=== PATIENT | male | born 1980 | race Caucasian/White ===

== ENCOUNTER 2017-03-08 19:59 | Emergency (ER) | payer MEDICAID ==
[~2017-03-08] VITALS: Ht 175.3 cm; Wt 97.5 kg
[2017-03-08 20:23] VITALS: BP 146/102
--- NOTE | 2017-03-08 21:29 | NUR ---
Patient to bed 04.
[2017-03-08 21:35] VITALS: BP 146/102
--- NOTE | 2017-03-08 21:35 | NUR ---
PATIENT PRESENTS TO ED WITH C/O PAIN TO LEFT FOOT. PT DENIES N/V/D; SKIN IS PINK/WARM/DRY; AAOX4 WITH EVEN AND STEADY GAIT; LUNGS CLEAR BL; HR EVEN AND REGULAR; PT DENIES ANY FEVER, CP, SOB, OR COUGH AT THIS TIME; PATIENT STATES PAIN OF 8/10 AT THIS TIME; VSS; PATIENT POSITIONED FOR COMFORT; HOB ELEVATED; BEDRAILS UP X2; BED DOWN. ER MD MADE AWARE OF PT STATUS.
[2017-03-08] MEDS ORDERED: IBUPROFEN 600 MG TAB ONE (21:55)
[2017-03-08] MEDS ORDERED: IBUPROFEN 600 MG TAB PO ONE (22:25)
== END 2017-03-08 22:44 | disposition home or self-care (01) ==
LOC: MED 19:59
DX: S92.515A Nondisplaced fracture of proximal phalanx of left lesser toe(s), initial encounter for closed fracture (principal); W20.8XXA Other cause of strike by thrown, projected or falling object, initial encounter; Y93.89 Activity, other specified; Y92.89 Other specified places as the place of occurrence of the external cause; Y99.8 Other external cause status
CPT/HCPCS: 73630; 99284

== ENCOUNTER 2017-04-15 18:23 | Emergency (ER) | payer MEDICAID ==
[~2017-04-15] VITALS: Ht 175.3 cm; Wt 98.7 kg
[2017-04-15 18:58] VITALS: BP 146/82
--- NOTE | 2017-04-15 19:55 | NUR ---
BLOOD DRAWN BY THE SHIP MATE. STILL IN LOBBY IN STABLE CONDITION. DONTRELL NOTED.
[2017-04-15 20:07] LABS: BASOPHILS # (AUTO) 0.4 K/uL (0.00-0.22); BASOPHILS % (AUTO) 4.7 % (0.0-2.0); EOSINOPHILS # (AUTO) 0.1 K/uL (0-0.4); HEMATOCRIT 45.5 % (36-52); HEMOGLOBIN 15.3 g/dL (12.0-18.0); LYMPHOCYTES # (AUTO) 0.9 K/uL (2.0-11.5); LYMPHOCYTES % (AUTO) 11.9 % (20.5-51.1); MEAN CORPUSCULAR HEMOGLOBIN 28 pg (27-31); MEAN CORPUSCULAR HGB CONC 34 g/dL (33-37); MEAN CORPUSCULAR VOLUME 83 fL (80-94); MONOCYTES # (AUTO) 0.3 K/uL (0.8-1.0); MONOCYTES % (AUTO) 3.3 % (1.7-9.3); NEUTROPHILS % (AUTO) 79.1 % (42.2-75.2); PLATELET COUNT (AUTO) 250 K/uL (140-450); RED BLOOD CELL COUNT(AUTO) 5.49 MIL/uL (4.20-6.10); RED CELL DISTRIBUTION WIDTH 12.7 % (11.6-13.7); WHITE BLOOD COUNT (AUTO) 7.7 K/uL (4.8-10.8)
[2017-04-15 20:17] LABS: CARBON DIOXIDE 30.5 mmol/L (21-32); CREATININE 1.2 mg/dL (0.7-1.3); POTASSIUM 3.5 mmol/L (3.5-5.1)
[2017-04-15 20:23] LABS: ALBUMIN 4.2 g/dL (3.4-5.0); TOTAL BILIRUBIN 0.8 mg/dL (0.0-1.0)
--- NOTE | 2017-04-15 21:05 | NUR ---
36M BIB SELF C/O INTERMITTENT FEVER, VOMITING AND DIARRHEA X TODAY. PT DENIES ANY SOB, CP AT THE MOMENT. PT AAOX4. BREATHING IS UNLABORED AND CLEAR. ER MD MADE AWARE. HX: PT DENIES RX: PT DENIES
[2017-04-15 21:21] VITALS: BP 132/79
--- NOTE | 2017-04-15 21:21 | NUR ---
Patient discharged with v/s stable. Written and verbal after care instructions given and explained. Patient alert, oriented and verbalized understanding of instructions. Ambulatory with steady gait. All questions addressed prior to discharge. ID band removed. Patient advised to follow up with PMD. Rx of ZOFRAN 8MG, MOTRIN 800MG, AND IMODIUM 800MG given. Patient educated on indication of medication including possible reaction and side effects. Opportunity to ask questions provided and answered.
== END 2017-04-15 21:21 | disposition home or self-care (01) ==
LOC: MED 18:23
DX: R11.2 Nausea with vomiting, unspecified (principal); R19.7 Diarrhea, unspecified; R50.9 Fever, unspecified
CPT/HCPCS: 36415; 80053; 83690; 85025; 99284

== ENCOUNTER 2017-05-20 17:57 | Emergency (ER) | payer MEDICAID, OTHER ==
[~2017-05-20] VITALS: Ht 175.3 cm; Wt 100.2 kg
[2017-05-20 18:06] VITALS: BP 152/94
--- NOTE | 2017-05-20 18:45 | NUR ---
PT TAKEN TO BED 3.
[2017-05-20 19:15] VITALS: BP 152/94
--- NOTE | 2017-05-20 19:15 | NUR ---
REPORT REPORT RECEIVED FROM KRISSY GREENE
--- NOTE | 2017-05-20 19:17 | NUR ---
PATIENT PRESENTS TO ED WITH C/O ABD PAIN RADIATING TO EPIGASTRIC AREA . FEELS NAUSEOUS BUT DENIES V/D; SKIN IS PINK/WARM/DRY; AAOX4 WITH EVEN AND STEADY GAIT; LUNGS CLEAR BL; HR EVEN AND REGULAR; PT DENIES ANY FEVER, CP, SOB, OR COUGH AT THIS TIME; PATIENT STATES PAIN OF 6/10 AT THIS TIME; PATIENT POSITIONED FOR COMFORT; HOB ELEVATED; BEDRAILS UP X2; BED DOWN. ER MD MADE AWARE OF PT STATUS.
--- NOTE | 2017-05-20 19:27 | NUR ---
Pt report given to pipo Lujan. Transfer of care at this time.
[2017-05-20] MEDS ORDERED: DICYCLOMINE HCL LIQUID 20 MG, ALUMINUM HYD/MAG/SIMETHICONE 30 ML, LIDOCAINE VISCOUS 2% ... PO ONE ×3 (19:30)
[2017-05-20 19:52] LABS: APPEARANCE,URINE CLEAR (CLEAR); BILIRUBIN,URINE NEGATIVE (NEGATIVE); BLOOD, URINE 1+ (NEGATIVE); COLOR,URINE YELLOW (YELLOW); LEUKOCYTE ESTERASE ,URINE NEGATIVE (NEGATIVE); NITRITE, URINE NEGATIVE (NEGATIVE); PH,URINE 6.5 (5.0-9.0); UGLUCOSE NEGATIVE (NEGATIVE)
[2017-05-20 19:53] LABS: RBC,URINE 3-10 (FEW) /HPF (0-5); WBC,URINE 0-5 (RARE) /HPF (0-5)
[2017-05-20 19:58] LABS: BASOPHILS # (AUTO) 0.3 K/uL (0.00-0.22); BASOPHILS % (AUTO) 4.4 % (0.0-2.0); EOSINOPHILS # (AUTO) 0.2 K/uL (0-0.4); EOSINOPHILS % (AUTO) 3.4 % (0.0-4.0); HEMATOCRIT 42.4 % (36-52); HEMOGLOBIN 14.4 g/dL (12.0-18.0); LYMPHOCYTES # (AUTO) 2.6 K/uL (2.0-11.5); LYMPHOCYTES % (AUTO) 36.9 % (20.5-51.1); MEAN CORPUSCULAR HEMOGLOBIN 29 pg (27-31); MEAN CORPUSCULAR HGB CONC 34 g/dL (33-37); MEAN CORPUSCULAR VOLUME 84 fL (80-94); MONOCYTES # (AUTO) 0.7 K/uL (0.8-1.0); MONOCYTES % (AUTO) 9.6 % (1.7-9.3); NEUTROPHILS # (AUTO) 3.2 K/uL (1.8-7.7); NEUTROPHILS % (AUTO) 45.7 % (42.2-75.2); PLATELET COUNT (AUTO) 262 K/uL (140-450); RED BLOOD CELL COUNT(AUTO) 5.05 MIL/uL (4.20-6.10); RED CELL DISTRIBUTION WIDTH 12.9 % (11.6-13.7)
[2017-05-20 20:03] LABS: ANION GAP 9.8 (8-16); CREATININE 1.1 mg/dL (0.7-1.3); POTASSIUM 3.8 mmol/L (3.5-5.1)
[2017-05-20 20:09] LABS: ALBUMIN 4.1 g/dL (3.4-5.0); TOTAL BILIRUBIN 0.4 mg/dL (0.0-1.0)
--- NOTE | 2017-05-20 21:35 | NUR ---
Patient discharged with v/s stable. Written and verbal after care instructions given and explained. Patient verbalized understanding. Ambulatory with steady gait. All questions addressed prior to discharge. Advised to follow up with PMD.
== END 2017-05-20 21:36 | disposition home or self-care (01) ==
LOC: MED 17:57
DX: R10.13 Epigastric pain (principal); R03.0 Elevated blood-pressure reading, without diagnosis of hypertension
CPT/HCPCS: 36415; 80053; 81001; 83690; 85025; 99284

== ENCOUNTER 2017-08-25 18:35 | Emergency (ER) | payer OTHER ==
[~2017-08-25] VITALS: Ht 175.3 cm; Wt 98.9 kg
[2017-08-25 18:39] VITALS: BP 142/98
--- NOTE | 2017-08-25 18:44 | NUR ---
PT GIVEN URINE CUP
--- NOTE | 2017-08-25 18:44 | NUR ---
PT TO LOBBY
--- NOTE | 2017-08-25 19:21 | NUR ---
PATIENT TO ER BED 6
--- NOTE | 2017-08-25 19:25 | NUR ---
37 Y/O M W/C/O PAIN ALL OVER R/T WELST THAT APPEAR X 6 DAYS AGO . PT DENIES ANY NEW FEVER, NEW FOOD, OR DETERGENT. NO S/S OF DISTRESS NOTED. MD CALI MADE AWARE.
--- NOTE | 2017-08-25 19:44 | NUR ---
Dr. Martinez evaluating patient.
[2017-08-25] MEDS ORDERED: NACL 0.9% 1,000 ML IV ONE (19:55)
[2017-08-25] MEDS ORDERED: KETOROLAC 30 MG/ML VIAL IVP ONE (19:55)
[2017-08-25 20:19] LABS: BASOPHILS % (AUTO) 0.6 % (0.0-2.0); EOSINOPHILS # (AUTO) 0.3 K/uL (0-0.4); EOSINOPHILS % (AUTO) 4.1 % (0.0-4.0); HEMATOCRIT 42.6 % (36-52); HEMOGLOBIN 14.6 g/dL (12.0-18.0); LYMPHOCYTES # (AUTO) 1.9 K/uL (2.0-11.5); MEAN CORPUSCULAR HEMOGLOBIN 29 pg (27-31); MEAN CORPUSCULAR HGB CONC 34 g/dL (33-37); MEAN CORPUSCULAR VOLUME 83.2 fL (80-94); MONOCYTES # (AUTO) 0.9 K/uL (0.8-1.0); MONOCYTES % (AUTO) 12.3 % (1.7-9.3); NEUTROPHILS # (AUTO) 4.4 K/uL (1.8-7.7); PLATELET COUNT (AUTO) 262 K/uL (140-450); RED BLOOD CELL COUNT(AUTO) 5.12 MIL/uL (4.20-6.10); RED CELL DISTRIBUTION WIDTH 13.4 % (11.6-13.7); WHITE BLOOD COUNT (AUTO) 7.7 K/uL (4.8-10.8)
[2017-08-25 20:28] LABS: ANION GAP 10.5 (8-16); CREATININE 1.1 mg/dL (0.7-1.3); POTASSIUM 4.5 mmol/L (3.5-5.1)
[2017-08-25 20:33] LABS: ALBUMIN 4.2 g/dL (3.4-5.0); CHOL/HDL RATIO 5.9 (1-4.5); TOTAL BILIRUBIN 0.6 mg/dL (0.0-1.0)
--- NOTE | 2017-08-25 20:39 | NUR ---
PT RESTING IN BED, STATES FEELS BETTER. NO S/S OF DISTRESS NOTED AT THE MOMENT. WILL CONT TO MONITOR.
[2017-08-25 21:31] VITALS: BP 142/88
--- NOTE | 2017-08-25 21:37 | NUR ---
Patient discharged with v/s stable. Written and verbal after care instructions given and explained. Patient alert, oriented and verbalized understanding of instructions. Ambulatory with steady gait. All questions addressed prior to discharge. ID band removed. Patient advised to follow up with PMD. Rx of KEFLEX 500, NAPROSYN 500MG given. Patient educated on indication of medication including possible reaction and side effects. Opportunity to ask questions provided and answered.
== END 2017-08-25 21:37 | disposition home or self-care (01) ==
LOC: MED 18:35
DX: R21 Rash and other nonspecific skin eruption (principal); M79.661 Pain in right lower leg
CPT/HCPCS: 36415; 80053; 80061; 83690; 85025; 96360; 99284; J1885; J7030; 96361

== ENCOUNTER 2021-08-01 21:42 | Emergency (ER) | payer OTHER ==
[~2021-08-01] VITALS: Ht 175.3 cm; Wt 96.2 kg
[2021-08-01 21:49] VITALS: BP 136/70
--- NOTE | 2021-08-01 21:55 | NUR ---
pt taken to bed 3.
[2021-08-01] MEDS ORDERED: IBUPROFEN 600 MG TAB PO ONE (22:30)
[2021-08-01] MEDS ORDERED: predniSONE 20 MG TAB PO ONE (22:30)
[2021-08-01] MEDS ORDERED: PRED20TA5 PO (22:40)
[2021-08-01] MEDS ORDERED: FLUT0.0560 NS (22:40)
[2021-08-01] MEDS ORDERED: IBUP-2213 PO (22:40)
--- NOTE | 2021-08-01 22:40 | NUR ---
41 Y/O M BIB SELF FOR LT SIDE FACE AND EAR PAIN X1 DAY. PT IS RECOVERING FROM A COLD X4 DAYS AGO. PT WAS TAKING OTC MEDS FOR COLD . PT STATES PAIN STARTED AFTER THE COLD WENT AWAY . DENIES N/V/D; PAIN 7/10 , PAIN IS THROBBING/ BURNING SENSATION. SKIN IS PINK/WARM/DRY; AAOX4 ; PT DENIES ANY FEVER, CP, SOB, OR COUGH AT THIS TIME; VSS; PT DRINKS , DENIES SMOKING, DRUGS PMH:NONE ALLERGIES: SEASONAL
[2021-08-01 23:04] VITALS: BP 136/70
--- NOTE | 2021-08-01 23:04 | NUR ---
Patient discharged with v/s stable. Written and verbal after care instructions given and explained. Patient alert, oriented and verbalized understanding of instructions. Ambulatory with steady gait. All questions addressed prior to discharge. ID band removed. Patient advised to follow up with PMD. Rx of FLUTICASONE PROPIONIATE, IBUPROFEN, PREDNISONE given. Opportunity to ask questions provided and answered.
--- NOTE | 2021-08-01 23:10 | NUR ---
The patient's care was reviewed and supervised by Mary Hamlin RN.
== END 2021-08-01 23:04 | disposition home or self-care (01) ==
LOC: MED 21:42
DX: R51.9 Headache, unspecified (principal); H92.02 Otalgia, left ear; Z79.899 Other long term (current) drug therapy
CPT/HCPCS: 99283; J7512

== ENCOUNTER 2023-01-30 09:05 | Emergency (ER) | payer OTHER ==
[~2023-01-30] VITALS: Ht 172.7 cm; Wt 96.2 kg
[~2023-01-30 09:05] MED LIST: FLUT0.0560 NS; IBUP-2213 PO; PRED20TA5 PO
[2023-01-30 09:07] VITALS: BP 130/78; PULSE 85; RESP 16; TEMP 97.2; O2SAT 99
[2023-01-30] MEDS ORDERED: ALUMINUM HYD/MAG/SIMETHICONE 30 ML UDC PO ONE (09:25)
[2023-01-30] MEDS ORDERED: DICYCLOMINE HCL LIQUID 10 MG/5 ML UDC PO ONE (09:25)
[2023-01-30] MEDS ORDERED: ACETAMINOPHEN EXTRA STRENGTH 500 MG TAB PO ONE (09:25)
[2023-01-30 10:03] LABS: APPEARANCE,URINE CLEAR (CLEAR); BILIRUBIN,URINE NEGATIVE (NEGATIVE); BLOOD, URINE 2+ (NEGATIVE); COLOR,URINE YELLOW (YELLOW); LEUKOCYTE ESTERASE ,URINE NEGATIVE (NEGATIVE); NITRITE, URINE NEGATIVE (NEGATIVE); PROTEIN,URINE TRACE (NEGATIVE); UGLUCOSE NEGATIVE (NEGATIVE); UROBILINOGEN,URINE 0.2 EU/dL (0.2 - 1)
[2023-01-30 10:15] LABS: BACTERIA,URINE 1+ /HPF (None Seen); RBC,URINE 11-20 (MOD) /HPF (0-5); SQUAMOUS EPITHELIAL CELL,UR 4-10 (MOD) /LPF (0-3 (FEW)); WBC,URINE 0-5 /HPF (0-5)
[2023-01-30 10:36] LABS: BASOPHILS % (AUTO) 0.3 % (0.0-2.0); EOSINOPHILS % (AUTO) 0.1 % (0.0-4.0); HEMOGLOBIN 14.4 g/dL (12.0-18.0); LYMPHOCYTES # (AUTO) 1.1 K/uL (2.0-11.5); LYMPHOCYTES % (AUTO) 10.9 % (20.5-51.1); MEAN CORPUSCULAR HEMOGLOBIN 29 pg (27-31); MEAN CORPUSCULAR HGB CONC 34 g/dL (33-37); MEAN CORPUSCULAR VOLUME 83.7 fL (80-94); MONOCYTES # (AUTO) 0.8 K/uL (0.8-1.0); MONOCYTES % (AUTO) 7.7 % (1.7-9.3); NEUTROPHILS # (AUTO) 8.4 K/uL (1.8-7.7); PLATELET COUNT (AUTO) 251 K/uL (140-450); RED BLOOD CELL COUNT(AUTO) 5.01 MIL/uL (4.20-6.10); WHITE BLOOD COUNT (AUTO) 10.4 K/uL (4.8-10.8)
[2023-01-30 11:00] LABS: ALBUMIN 3.9 g/dL (3.4-5.0); ANION GAP 13.8 (8-16); CALCIUM 8.9 mg/dL (8.5-10.1); CARBON DIOXIDE 25.4 mmol/L (21-32); CREATININE 1.3 mg/dL (0.6-1.3); POTASSIUM 4.2 mmol/L (3.5-5.1); TOTAL BILIRUBIN 0.5 mg/dL (0.0-1.0); TOTAL PROTEIN, SERUM 7.8 g/dL (6.4-8.2)
[2023-01-30 11:17] LABS: FLU A ANTIGEN negative (NEGATIVE); FLU B ANTIGEN NEGATIVE (NEGATIVE)
[2023-01-30] MEDS ORDERED: DICY20TA19 PO (12:03)
[2023-01-30] MEDS ORDERED: ACET-10509 PO (12:03)
[2023-01-30] MEDS ORDERED: IMO2 PO (12:28)
[2023-01-30 12:35] VITALS: BP 129/65; PULSE 81; RESP 16; TEMP 98; O2SAT 99
== END 2023-01-30 12:37 | disposition home or self-care (01) ==
LOC: MED 09:05
DX: A08.4 Viral intestinal infection, unspecified (principal); Z20.822 Contact with and (suspected) exposure to COVID-19; I10 Essential (primary) hypertension; Z79.899 Other long term (current) drug therapy; Z79.1 Long term (current) use of non-steroidal anti-inflammatories (NSAID)
CPT/HCPCS: 36415; 80053; 81001; 83690; 85025; 87086; 99284

== ENCOUNTER 2023-11-16 20:39 | Emergency (ER) | payer OTHER ==
[~2023-11-16] VITALS: Ht 175.3 cm; Wt 97.5 kg
[~2023-11-16 20:39] MED LIST changes: +ACET-10509 PO; +DICY20TA19 PO; -FLUT0.0560 NS; +FLUT16SP10 NS; +IMO2 PO
[2023-11-16 21:24] VITALS: BP 133/73; PULSE 78; RESP 16; TEMP 98.1; O2SAT 97
[2023-11-16] MEDS: TETRACAINE HCL/PF 0.5% OPTH 4 ML BTL OP ONE (22:47)
[2023-11-16] MEDS: FLUORESCEIN OPTH STRIP 1 MG OP ONE (22:47)
[2023-11-16] MEDS ORDERED: ERYT5OIN58 RIGHT EYE (23:23)
== END 2023-11-16 23:29 | disposition home or self-care (01) ==
LOC: MED 20:39
DX: T15.01XA Foreign body in cornea, right eye, initial encounter (principal); I10 Essential (primary) hypertension; Z79.899 Other long term (current) drug therapy; X58.XXXA Exposure to other specified factors, initial encounter; Y92.89 Other specified places as the place of occurrence of the external cause; Y93.89 Activity, other specified; Y99.8 Other external cause status
CPT/HCPCS: 65220; 99284